=== PATIENT | female | born 1945 | race Caucasian/White ===

== ENCOUNTER 2017-01-11 02:56 | Inpatient (IN) | payer OTHER ==
[~2017-01-11] VITALS: Ht 157.5 cm; Wt 112.9 kg
[2017-01-11] MEDS ORDERED: ASPIRIN81 M4 PO (07:03)
[2017-01-11] MEDS ORDERED: AMLODIPINE BESYL5 M1 PO (07:03)
[2017-01-11] MEDS ORDERED: VYTORIN 10-401 EACH PO (07:04)
[2017-01-11] MEDS ORDERED: LISINOPRIL20 M1 PO (07:35)
[2017-01-11] MEDS ORDERED: ACTOS15 M1 PO (07:36)
[2017-01-11] MEDS ORDERED: METFORMIN HCL500 M2 PO (07:36)
[2017-01-11] MEDS ORDERED: GLUCOVANCE 5-51 EACH PO (07:36)
--- NOTE | 2017-01-11 09:52 | Operative Report ---
Operative/Inv Procedure Report Surgery Date: 01/11/17 Name of Procedure: Left carotid thromboendarterectomy Pre-Operative Diagnosis: High-grade left carotid stenosis Post-Operative Diagnosis: Same Estimated Blood Loss: scant Surgeon/Help Desk Administrator: REED MASON MD, SERGI MD, MICHAEL Anesthesia: general endotracheal tube Complications: None Condition: Stable to PACU Operative Indication: High-grade left carotid stenosis Operative/Procedure Note Note: Patient known to Dr. Reed Mason MD. Consent obtained by his services and risks benefits and alternatives discussed by the doctor with the patient. Patient brought to the operating room and laid supine on the table. Left neck prepped and draped in usual sterile surgical fashion. Longitudinal incision made over the anterior border of the sternocleidomastoid. Sharp dissection carried down through the skin and subcutaneous tissue to the carotid sheath. Artery dissected free proximally distally. The common, external/internal carotid artery were controlled. Patient was bolused with 5000 units of heparin. The artery was opened with a 11 blade and Reyes scissor. The plaque was dissected free and resected with care. The artery demonstrated excellent backbleeding. Artery was then repaired with a 6-0 running Prolene suture. The soft tissue was closed with interrupted sutures. Skin was closed with hayden. Patient tolerated the procedure well and was transferred to the recovery area.
--- NOTE | 2017-01-11 10:09 | Admission Core Measures ---
Admission Meds I reviewed the following Meds: Current Medications Sig/Nohemi Start time Last Medication Dose Stop Time Status Admin Amlodipine Besylate 5 MG DAILY 01/11 1000 AC (Norvasc) Aspirin 81 MG DAILY 01/11 1000 AC (Aspirin) Ezetimibe 10 MG DAILY 01/11 1000 AC (Zetia) Glyburide 5 MG DAILY AC 01/12 0700 UNVr (Diabeta) Lisinopril 20 MG DAILY 01/11 1000 AC (Prinivil) Ondansetron HCl 4 MG Q8P PRN 01/11 1000 UNVr (Zofran) Pioglitazone HCl 15 MG DAILY 01/11 1000 UNVr (Actos) Sodium Chloride 1,000 ML .[id number] 01/11 1000 UNVr (Normal Saline 0.9%) Acute Coronary Syndrome Inclusion Criteria ACS Diagnosis No Inpatient Core Measures LDL Reminder: If No, please order W/I first 24hr of stay Congestive Heart Failure Inclusion Criteria CHF Diagnosis No Cerebrovascular accident Inclusion Criteria CVA/TIA Diagnosis No Inpatient Core Measures Bedside Swallow Eval Reminder: If BSE failed, place ST order Antithrombotic Reminder: Order Antithrombotic Medication by end of day 2 Antithrombotic Reminder: Document Reason Antithrombotic Not ordered by end of day 2 AFIB/Flutter Reminder: If Present, add to problem list AFIB/Flutter Reminder: Order Anticoag Medication for pts with AFIB/Flutter Atherosclerosis Reminder: If Present, add to problem list LDL Reminder: If No, please order W/I first 24hr of stay PT Order Reminder: If No, please order Venous thromboembolism Inpatient Core Measures VTE Risk Factors: Age > 40, Surgery VTE Prophylaxis Ordered Inpt Mechanical (ALPS/TEDS) No [facility] VTE prophylaxis d/t No contraindications No VTE Pharm Prophylaxis d/t Surgical contraindication Inclusion Criteria - Per Current guidelines, there needs to be overlap - treatment for the first 5 days of Warfarin therapy. - Parenteral Anticoagulation (IV or SC) needs to be - given along with Warfarin therapy. VTE Diagnosis No VTE Type NONE VTE Confirmed by (Test) NONE Problem List As ranked by this Provider includes Assessment & Plan 1. S/P carotid endarterectomy HOME MEDS Home Med List Amlodipine Besylate 5 MG TABLET 1 TAB PO DAILY BP (Reported) Aspirin (Aspirin*) 81 MG TAB.CHEW 1 TAB PO DAILY HEART HEALTH (Reported) Ezetimibe/Simvastatin (Vytorin 10-40 MG Tablet) 10 MG-40 MG TABLET 1 TAB PO DAILY HEART (Reported) Glyburide/Metformin HCl (Glucovance 5-500 MG Tablet) 5 MG-500 MG TABLET 1 TAB PO BID BS (Reported) Lisinopril 20 MG TABLET 1 TAB PO DAILY bp (Reported) Metformin HCl (Metformin HCl ER) 500 MG TAB.ER.24 1 TAB PO DAILY BS (Reported ) Pioglitazone HCl (Actos) 15 MG TABLET 1 TAB PO DAILY BS (Reported)
--- NOTE | 2017-01-11 10:22 | PN- Vascular Surgery ---
Surgical Brief Attending Note Brief Attending Note: Please note an administrative assistant coordinator surgeon was needed in the case due to the patient's complexity and lack of a qualified resident to administrative assistant coordinator on the case.
[2017-01-11 12:00] VITALS: BP 166/88
--- NOTE | 2017-01-11 13:14 | PN- Vascular Surgery ---
Subjective Subjective: Post Op Note s/p left carotid endarterectomy Patient without c/o. Pain controlled, currently 02/22. Denies difficulty breathing or swallowing. Denies lightheadedness, headache, visual or hearing changes. Denies CP/SOB. Per RN her A-line SBP was reading as 184mmHg but manual SBP was 166mmHg Objective Vital Signs and I&Os Vital Signs Date Time Temp Pulse Resp B/P Pulse O2 O2 Flow FiO2 Ox Delivery Rate 01/11 1200 Nasal 3.0L Cannula 01/11 1200 97.4 86 18 166/88 99 Nasal 3.0L Cannula Intake & Output 01/11 1600 01/11 0800 01/11 0000 01/10 1600 01/10 0800 01/10 0000 Intake Total Output Total Balance Patient 249 lb Weight Physical Exam: Gen: NAD, comfortable, A&Ox3 Neuro: CNII-XII intact Neck:left neck dressing with small amount of blood spotting on inferior portion. Small amount of swelling present, soft. Chest: NRD, no stridor. RRR. Ext: No calve swelling/TTP Current Medications: Current Medications Sig/Nohemi Start time Last Medication Dose Route Stop Time Status Admin Amlodipine Besylate 5 MG DAILY 01/12 1000 DC PO Amlodipine Besylate 5 MG DAILY 01/11 1245 AC PO Amlodipine Besylate 5 MG DAILY 01/11 1000 DC PO Aspirin 81 MG DAILY 01/12 1000 AC PO Aspirin 81 MG DAILY 01/11 1000 DC PO Atorvastatin Calcium 20 MG 1700 01/11 1700 AC PO Ezetimibe 10 MG DAILY 01/12 1000 AC PO Ezetimibe 10 MG DAILY 01/11 1000 DC PO Glyburide 5 MG DAILY AC 01/12 0700 DC PO Insulin Human Regular 0 TIDAC/HS 01/11 1200 AC 01/11 SC 1258 Lisinopril 20 MG DAILY 01/12 1000 DC PO Lisinopril 20 MG DAILY 01/11 1315 UNVr PO Lisinopril 20 MG DAILY 01/11 1000 DC PO Ondansetron HCl 4 MG Q8P PRN 01/11 1115 AC IV Ondansetron HCl 4 MG Q8P PRN 01/11 1000 DC IV Pioglitazone HCl 15 MG DAILY 01/11 1000 DC PO Sodium Chloride 1,000 ML .[id number] 01/11 2320 AC IV Sodium Chloride 1,000 ML .[id number] 01/11 1000 AC 01/11 IV 01/11 2319 1156 Assessment/Plan Assessment/Plan 71yo F POD#1 s/p left carotid endarterectomy. AVSS, patient stable. Will monitor BP. New manual reading sbp 156mmHg. - pain control - insulin sliding scale - CC3 diet - home meds - start lisinopril now - OOB with assist - I/O's - neuro checks - ALPS Core Measures/Miscellaneous Venous Thromboembolism VTE Risk Factors: Age > 40, Obesity, Surgery VTE Contraindications: Active Bleeding VTE Prophylaxis Ordered Inpt: Mechanical (ALPS/TEDS) VTE Diagnosis: No VTE Type: NONE VTE Confirmed by (Test): NONE Beta Roxana Is Beta Roxana a Home Med? No Antibiotics Is Patient on Antibiotics? No
[2017-01-11 16:00] VITALS: BP 118/70
[2017-01-11 22:52] VITALS: BP 128/68
[2017-01-12] MEDS ORDERED: PERCOCET 5-3251 EACH PO (05:46)
--- NOTE | 2017-01-12 05:48 | PN- Vascular Surgery ---
Subjective Subjective: POD#1 S'/P LEFT CEA COMFORTABLE THIS AM DENIES CP, SOB, NO N+V WITH DIET AMBULATING AND TOLIETING INDEPENDENTLY Objective Vital Signs and I&Os Vital Signs Date Time Temp Pulse Resp B/P Pulse O2 O2 Flow FiO2 Ox Delivery Rate 01/12 0400 99 Nasal 2.0L Cannula 01/12 0000 98 Nasal 2.0L Cannula 01/11 2252 98.0 78 20 128/68 96 Room Air 01/11 2000 95 Room Air 01/11 1600 Nasal 1.0L Cannula 01/11 1600 98.3 72 18 118/70 98 Nasal 1.0L Cannula 01/11 1408 90 123/44 01/11 1408 90 123/44 01/11 1200 Nasal 3.0L Cannula 01/11 1200 97.4 86 18 166/88 99 Nasal 3.0L Cannula Intake & Output 01/12 0800 01/12 0000 01/11 1600 01/11 0800 01/11 0000 01/10 1600 Intake Total 895.8 455 Output Total 1000 100 Balance -104.2 355 Intake, IV 295.8 215 Intake, Oral 600 240 Number 0 0 Bowel Movements Output, Urine 1000 100 Patient 249 lb Weight Physical Exam: CV: RRR LUNGS: CLEAR ABD: SOFT, +BS EXT: WARM, DISTAL CMS INTACT Assessment/Plan Assessment/Plan VASCULAR STABLE PLAN D/C CONSUELO ADVANCE DIET D/C IV PAIN MEDS START PERCOCET PRN PLAN FOR HOME D/C LATER THIS AM Core Measures/Miscellaneous Venous Thromboembolism VTE Risk Factors: Age > 40, Obesity, Surgery VTE Contraindications: Active Bleeding VTE Prophylaxis Ordered Inpt: Mechanical (ALPS/TEDS) VTE Diagnosis: No VTE Type: NONE VTE Confirmed by (Test): NONE Beta Roxana Is Beta Roxana a Home Med? No Antibiotics Is Patient on Antibiotics? No
[2017-01-12 05:51] LABS: ABSOLUTE BASOPHIL COUNT 0 /CUMM (0.0-0.2); ABSOLUTE EOSINOPHIL COUNT 0 /CUMM (0.0-0.7); ABSOLUTE GRANULOCYTE CT 6.2 /CUMM (1.4-6.5); ABSOLUTE LYMPH COUNT 1.1 /CUMM (1.2-3.4); ABSOLUTE MONOCYTE COUNT 0.5 /CUMM (0.10-0.60); BASOPHIL % 0.4 % (0.0-2.0); EOSINOPHIL % 0.1 % (0-5); GRANULOCYTE % 78.5 % (42.2-75.2); HEMATOCRIT 37.2 % (37-47); MEAN CORPUSCULAR HGB CONC 33.2 G/DL (33.0-37.0); MEAN CORPUSCULAR VOLUME 87.3 FL (81.0-99.0); MEAN PLATELET VOLUME 11.8 FL (7.4-10.4); PLATELET COUNT 109 /CUMM (130-400); RBC DISTRIBUTION WIDTH 15.1 % (11.5-14.5); RED BLOOD CELL CT 4.26 /CUMM (4.20-5.40); WHITE BLOOD CELL COUNT 7.9 /CUMM (4.8-10.8)
--- NOTE | 2017-01-12 05:57 | Patient Discharge Instructions ---
Discharge Instructions General Discharge Information You were seen/treated for: LEFT CAROTID STENOSIS You had these procedures: LEFT CAROTID ENDARTERECTOMY Watch for these problems: INCREASED WOUND BLEEDING /DRAINAGE, INCREASED SELLING AT WOUND SITE, TEMP>101.5, BLURRED VISSION, HEADACHE, DIZINNESS Call Surgeon to remove: Caro No bath, but you may shower: Yes Other wound care: KEEP WOUND C.LIO AND DRY Diet Continue normal diet: Yes Activity Activity Limited to: Weight bear as tolerated Other activity limits: NO STRENUOUS ACTIVITY Acute Coronary Syndrome Inclusion Criteria At DC or during hospital stay patient has or had the following: ACS DIAGNOSIS No Discharge Core Measures Meds if any: Prescribed or Continued at Discharge Meds if any: NOT Prescribed or Continued at Discharge Congestive Heart Failure Inclusion Criteria At DC or during hospital stay patient has or had the following: CHF DIAGNOSIS No Discharge Core Measures Meds if any: Prescribed or Continued at Discharge Meds if any: NOT Prescribed or Continued at Discharge Cerebrovascular accident Inclusion Criteria At DC or during hospital stay patient has or had the following: CVA/TIA Diagnosis No Discharge Core Measures Meds if any: Prescribed or Continued at Discharge Antithrombotic No Statin (required if LDL =>70) Yes Anticoagulant Yes Meds if any: NOT Prescribed or Continued at Discharge Venous thromboembolism Inclusion Criteria VTE Diagnosis No VTE Type NONE VTE Confirmed by (Test) NONE Discharge Core Measures - Per Current guidelines, there needs to be overlap - treatment for the first 5 days of Warfarin therapy. - If discharged on Warfarin prior to 5 days of - overlap therapy, the patient will need to be - assessed for post discharge needs including - *Post discharge parental anticoagulation - *Warfarin and/or parental anticoagulation education - *Follow up date to check INR post discharge At least 5 days overlap therapy as Inpatient No Meds if any: Prescribed or Continued at Discharge Note: Overlap Therapy is Warfarin and Anticoagulant Meds if any: NOT Prescribed or Continued at Discharge
[2017-01-12 08:00] VITALS: BP 122/80
--- NOTE | 2017-01-12 08:16 | PN- Vascular Surgery ---
Surgical Brief Attending Note Brief Attending Note: VASCULAR ATTENDING NOTE: Pt. s/p L. CEA. No issues. Neuro: No defecits A/P D/C home F/U with [place]
[2017-01-12 09:40] VITALS: BP 138/74
--- NOTE | 2017-02-05 17:00 | Discharge Summary ---
Visit Information Visit Dates Admission Date: 01/11/17 Discharge Date: 01/12/17 Hospital Course Course Attending Physician: ALICE CORONA MD Primary Care Physician: Mary Ann RIBEIRO MD Hospital Course: Ms. Clark 71-year-old female who is taken to the operating room on 2016 for left carotid endarterectomy. She tolerated the procedure well and she was transferred to the intensive care unit for overnight monitoring. She was seen the following morning and evaluated and was determined at that time that the patient would be stable for discharge post left carotid endarterectomy. Her hospital stay was otherwise uneventful except for overnight ICU monitoring. Allergies: Coded Allergies: No Known Allergies (01/11/17) Significant Procedures: Left carotid endarterectomy Pertinent Lab Results: None Disposition Summary Disposition Principal Diagnosis: Severe left carotid stenosis Additional Diagnosis: None Discharge Disposition: home or self care Discharge Instructions General Discharge Information Code Status: Full Code Patient's Diet: Heart healthy diet Patient's Activity: No strenuous activities Follow-Up Instructions/Appts: Called Dr. Corona for temperature greater than 101, increased wound drainage or redness, headache, blurred vision or dizziness. Call Dr. Corona's office for follow-up appointment Medications at Discharge Discharge Medications: Continue taking these medications: Amlodipine Besylate (Amlodipine Besylate) 5 MG TABLET 1 Tablet ORAL DAILY Comments: NOT TAKEN Aspirin (Aspirin*) 81 MG TAB.CHEW 1 Tablet ORAL DAILY Comments: NOT TAKEN Ezetimibe/Simvastatin (Vytorin 10-40 MG Tablet) 10 MG-40 MG TABLET 1 Tablet ORAL DAILY Comments: NOT TAKEN Lisinopril (Lisinopril) 20 MG TABLET 1 Tablet ORAL DAILY Comments: NOT TAKEN Metformin HCl (Metformin HCl ER) 500 MG TAB.ER.24 1 Tablet ORAL DAILY Comments: NOT TAKEN Pioglitazone HCl (Actos) 15 MG TABLET 1 Tablet ORAL DAILY Comments: NOT TAKEN Glyburide/Metformin HCl (Glucovance 5-500 MG Tablet) 5 MG-500 MG TABLET 1 Tablet ORAL TWICE DAILY Comments: NOT TAKEN Start taking the following new medications: Oxycodone HCl/Acetaminophen (Percocet 5-325 MG Tablet) 5 MG-325 MG TABLET 1 Tablet ORAL EVERY 4-6 HOURS NEEDED as needed for PAIN SCALE 1-3 (MILD) Qty = 20 No Refills Comments: Last Taken: 01-12-17 Time: 10 AM Copies To: CJ MICHAELS,ALICE
== END 2017-01-12 10:09 | DRG 38 ==
LOC: ENRESERVDT → ENRESERVTM → SDA 02:56 → CRI 02:56
PROVIDERS: Physician Assistant Surgical; ADMIT Surgery Vascular Surgery
PROC: 03CL0ZZ Extirpation of Matter from Left Internal Carotid Artery, Open Approach (ICD-10-PCS; principal; 2017-01-11)
DX: I65.22 Occlusion and stenosis of left carotid artery (principal); Z68.42 Body mass index [BMI] 45.0-49.9, adult; E11.9 Type 2 diabetes mellitus without complications; I10 Essential (primary) hypertension; Z87.891 Personal history of nicotine dependence; E78.5 Hyperlipidemia, unspecified; Z79.84 Long term (current) use of oral hypoglycemic drugs; Z85.828 Personal history of other malignant neoplasm of skin; E66.9 Obesity, unspecified
CPT/HCPCS: CCU; 82436; 88304; J0131; J0690; J1644; J2405; J3490

== ENCOUNTER → 2018-02-28 | Day surgery (SDC) | payer OTHER ==
[~2018-02-28] VITALS: Ht 154.9 cm; Wt 95.3 kg
[~2018-02-28] MED LIST: ACTOS15 M1 PO; AMLODIPINE BES2.5 M1 PO; AMLODIPINE BESYL5 M1 PO; ASPIRIN81 M4 PO; CLARITIN10 M1 PO; CLOPIDOGREL75 M1 PO; FLONASE ALLERG9.9 ML NASB; GLUCOVANCE 5-51 EACH PO; LISINOPRIL20 M1 PO; LISINOPRIL40 M1 PO; METFORMIN HCL500 M2 PO; PERCOCET 5-3251 EACH PO; TYLENOL EXTRA500 M2 PO; VYTORIN 10-401 EACH PO
--- NOTE | 2018-02-28 14:18 | RADIOLOGY REPORT ---
EXAMINATION: CR ABDOMEN/INTRAOPERATIVE FLUOROSCOPY CLINICAL INDICATION: Left carotid angiogram and stenting. COMPARISON: None TECHNIQUE/FINDINGS: Fluoroscopic equipment was dedicated to the operating room for the performance of an intraoperative procedure. Seven cine fluoroscopy runs were acquired and are archived in PACS. Please refer to operative notes for procedural detail. FLUOROSCOPY TIME: 13 minutes 25 seconds. IMPRESSION: Administrative dictation for intraoperative fluoroscopy and image archiving in PACS. Please refer to operative notes for details.
--- NOTE | 2018-03-08 15:14 | Operative Report ---
Operative/Inv Procedure Report Surgery Date: 02/28/18 Name of Procedure: #1 ultrasound guidance #2 Left ICA, Right innominate , left subclavian angiogram Pre-Operative Diagnosis: Left ICA stenosis Post-Operative Diagnosis: same Estimated Blood Loss: none Surgeon/Dispatcher Refinery: Torres Lucio MD, Dr Anesthesia: moderate sedation Complications: none Condition: good Operative Indication: Left internal carotid stenosis by ultrasound and CAT scan. Operative/Procedure Note Note: The patient was graduates from roots of the operating room. Timeout was performed. Sedation was administered. Arterial line was placed. The right groin was sterilely prepped and draped in usual fashion. Using ultrasound, femoral artery was cannulated. Guidewire was placed into the thoracic aorta. Thoracic judgment was done first. The patient had been heparinized with 5000 units intravenous heparin.. The innominate artery was easily found and eventually thoracic and jugular done which were patent right CCA is subclavian artery. Next catheter cannulated the left subclavian artery which was widely patent. The thoracic angiogram show possibly a bovine arch. A. A catheter was placed into the takeoff of the left common carotid artery at the base of the innominate artery. It wasn't clear whether she had a high-grade stenosis versus a functional small internal carotid artery. In view of the gbovine arch the procedure was terminated. She will be brought back for common carotid artery cutdown on the left with completion angiogram with possible stenting. There were no medications. Findings: Small nonfunctional internal carotid artery possibly high-grade restenosis. Bovine Arch. Discharge Disposition: PACU
== END ==
LOC: STS 04:17
DX: I65.22 Occlusion and stenosis of left carotid artery (principal); I10 Essential (primary) hypertension; E11.9 Type 2 diabetes mellitus without complications; Z79.84 Long term (current) use of oral hypoglycemic drugs; Z87.891 Personal history of nicotine dependence; M19.90 Unspecified osteoarthritis, unspecified site; Z79.82 Long term (current) use of aspirin
CPT/HCPCS: 72040; C1725; C1760; C9399; J0131; J1644; J2250; J2720; Q9967

== ENCOUNTER 2018-03-08 03:00 | Observation (INO) | payer OTHER ==
[~2018-03-08] VITALS: Ht 154.9 cm; Wt 95.3 kg
[~2018-03-08 03:00] MED LIST changes: -TYLENOL EXTRA500 M2 PO
--- NOTE | 2018-03-08 15:04 | Operative Report ---
Operative/Inv Procedure Report Surgery Date: 03/08/18 Name of Procedure: 1.0 Carotid cutdown 2.0 Selective angiogram left ICA and intracranial Pre-Operative Diagnosis: Carotid stenosis, left side, s/p Left CEA Post-Operative Diagnosis: same Estimated Blood Loss: none Surgeon/Canoe Inspector Final: Naveed MICHAELS,Torres Hernandez Anesthesia: moderate sedation Monitors: arterial line Complications: none Condition: good Operative Indication: left carotid stenosis Operative/Procedure Note Note: The patient was correctly identified, time out performed. Sedation and a-line done. Left side of the neck prepped and draped. 10cc 1% lidocaine infiltrated. The common carotid s dissected and vessels loops place. Next throghu the skin a micropunture followed by a 6Fr sheath placed. The patient had been heparanized prior to the sheath placemnt. Next 5 angiogram done , different views . A very small ICa to the foramen founf , no stenosis. The arteriotomy repaired with 6-0 prolene. The wound was closed. The patinet tolertaed the procedure well. Findings: no stenosis, small carotid Discharge Disposition: PACU
--- NOTE | 2018-03-08 16:56 | Patient Discharge Instructions ---
Discharge Instructions General Discharge Information You were seen/treated for: Carotid stenosis, left side, s/p Left CEA You had these procedures: Surgery Date: 03/08/18 Name of Procedure: 1.0 Carotid cutdown 2.0 Selective angiogram left ICA and intracranial Watch for these problems: fever>101.3, increased pain, redness/swelling/drainage, dizziness, shortness of breath, chest pains No bath, but you may shower: Yes Other wound care: dermabond closure over incision. no dressings needed. ok to shower. Diet Continue normal diet: Yes Recommended Diet: Diabetic Activity Full Activity/No Limits: No Activity Self Limited: Yes Pounds, do NOT lift more than: 10 Other activity limits: no heavy lifting. no strenuous activity. Acute Coronary Syndrome Inclusion Criteria At DC or during hospital stay patient has or had the following: ACS DIAGNOSIS No Discharge Core Measures Meds if any: Prescribed or Continued at Discharge Meds if any: NOT Prescribed or Continued at Discharge Congestive Heart Failure Inclusion Criteria At DC or during hospital stay patient has or had the following: CHF DIAGNOSIS No Discharge Core Measures Meds if any: Prescribed or Continued at Discharge Meds if any: NOT Prescribed or Continued at Discharge Cerebrovascular accident Inclusion Criteria At DC or during hospital stay patient has or had the following: CVA/TIA Diagnosis No Discharge Core Measures Meds if any: Prescribed or Continued at Discharge Meds if any: NOT Prescribed or Continued at Discharge Venous thromboembolism Inclusion Criteria VTE Diagnosis No VTE Type NONE VTE Confirmed by (Test) NONE Discharge Core Measures - Per Current guidelines, there needs to be overlap - treatment for the first 5 days of Warfarin therapy. - If discharged on Warfarin prior to 5 days of - overlap therapy, the patient will need to be - assessed for post discharge needs including - *Post discharge parental anticoagulation - *Warfarin and/or parental anticoagulation education - *Follow up date to check INR post discharge At least 5 days overlap therapy as Inpatient No Meds if any: Prescribed or Continued at Discharge Note: Overlap Therapy is Warfarin and Anticoagulant Meds if any: NOT Prescribed or Continued at Discharge
[2018-03-08] MEDS ORDERED: TYLENOL EXTRA500 M2 PO (16:59)
[2018-03-08] MEDS ORDERED: PERCOCET 5-3251 EACH PO (16:59)
--- NOTE | 2018-03-08 17:05 | Surg Short-stay <48hrs Dis Sum ---
Visit Information Visit Dates Admission Date: 03/08/18 Discharge Date: 03/09/18 Surgical Short Stay DC Summary Admission Diagnosis: Carotid stenosis, left side, s/p Left CEA Final Diagnosis: same as above, s/p Surgery Date: 03/08/18 Name of Procedure: 1.0 Carotid cutdown 2.0 Selective angiogram left ICA and intracranial Procedure(s): Surgery Date: 03/08/18 Name of Procedure: 1.0 Carotid cutdown 2.0 Selective angiogram left ICA and intracranial Summary/Significant Findings: Electively scheduled carotid cutdown and selective angiogram left ICA by on 03/08/18 for history of left carotid stenosis, with history of left CEA. There was no role for stenting, so the patient remained in observation status overnight. Her diet was advanced as tolerated. Aspirin and plavix were resumed POD#1 morning. She was discharged home post-op day#1 after tolerating diet, pain controlled, and labs reviewed. Condition at Discharge: stable Discharge Disposition: home or self care Discharge instructions provided to patient/family: Yes Post discharge follow-up plan: one week follow up with Copies to: Prema MICHAELS,Alexey Rivera
[2018-03-08 17:45] VITALS: BP 144/68
--- NOTE | 2018-03-08 17:56 | PN- Vascular Surgery ---
Subjective Subjective: pt in bed, some left sided neck pain 6/10. denies paresthesias no CROCKETT, SOB/CP. No n/v has not ambulated Objective Vital Signs and I&Os Intake & Output 03/08 0803/08 0000 03/07 1600 03/07 0803/07 0000 Intake Total Output Total Balance Patient 210 lb Weight Physical Exam: gen- NAD resp- clear cardiac-rrr abd- soft, nt ext- strength equal bilat on upper and lower ext. 2+ radial pulse bilat neuro- distal sensory and motor function intact. CN II-XII intact Assessment/Plan Assessment/Plan 72yo F here for observation SP Left caratid angio with cutdown. stable dvt ppx- asa and plavix pain management ice to op site CC diet regular home meds DC planning- likely home tomorrow Core Measures Venous Thromboembolism VTE Risk Factors Surgery No Mechanical VTE Prophylaxis d/t N/A MechProphylax Ordered No VTE Pharm Prophylaxis d/t NA PharmProphylax ordered
[2018-03-08 20:00] VITALS: BP 120/66
--- NOTE | 2018-03-08 20:56 | RADIOLOGY REPORT ---
EXAMINATION: CR ABDOMEN/INTRAOPERATIVE FLUOROSCOPY CLINICAL INDICATION: Left carotid arteriogram in OR. COMPARISON: 02/28/2018. TECHNIQUE/FINDINGS: Fluoroscopic equipment was dedicated to the operating room for the performance of an intraoperative procedure. Several (3) spot films and 6 cine fluoroscopy runs were acquired and are archived in PACS. Please refer to operative notes for procedural detail. FLUOROSCOPY TIME: 2 minutes 40 seconds. IMPRESSION: Administrative dictation for intraoperative fluoroscopy and image archiving in PACS. Please refer to operative notes for details.
[2018-03-09 00:28] VITALS: BP 108/60
[2018-03-09 04:26] VITALS: BP 122/60
--- NOTE | 2018-03-09 07:33 | PN- Vascular Surgery ---
Subjective Subjective: No complaints. Tolerating diet. No nausea. Out of bed to bathroom. No dizziness. No shortness of breath. No chest pains. Voiding well. Objective Vital Signs and I&Os Vital Signs Date Time Temp Pulse Resp B/P B/P Pulse O2 O2 Flow FiO2 Mean Ox Delivery Rate 03/09 0426 98.1 60 20 122/60 95 03/09 0028 98.2 70 20 108/60 94 03/086 66 120/66 03/08 2000 97.9 68 18 120/66 94 Room Air 03/08 1745 98.0 75 16 144/68 97 Room Air Room Air Intake & Output 03/09 0803/09 0000 03/08 1600 03/08 0800 03/08 0000 03/07 1600 Intake Total 1080 670 Output Total 500 450 Balance 580 220 Intake, IV 600 170 Intake, Oral 480 500 Number 0 Bowel Movements Output, Urine 500 450 Patient 210 lb 210 lb Weight Physical Exam: General - alert & oriented x 3. comfortable. no acute distress. no facial droop. Neck - incision well approximated with skin glue. no hematoma. no exudates. no drains. Lungs - clear bilaterally. no w/r/r. Cardiac - s1s2. +systolic murmur appreciated Abdomen - soft. nontender. Extremities - warm bilaterally. no c/c/e. calves soft and nontender b/l. athrombics active. Current Medications: Current Medications Sig/Nohemi Start time Last Medication Dose Route Stop Time Status Admin Acetaminophen 650 MG Q6P PRN 03/08 1800 AC PO Amlodipine Besylate 5 MG DAILY 03/09 900 AC PO Amlodipine Besylate 2.5 MG QPM 03/08 2100 AC 03/08 PO 2055 Aspirin Buffered 81 MG DAILY 03/09 900 AC PO Atorvastatin Calcium 20 MG 1700 03/08 1900 AC 03/08 PO 2001 Clopidogrel Bisulfate 75 MG DAILY 03/09 900 AC PO Dextrose/Sodium 1,000 ML Q13H 03/08 1800 AC 03/09 Chloride IV 0630 Docusate Sodium 100 MG BID 03/08 2100 AC 03/08 PO 2056 Ezetimibe 10 MG DAILY 03/09 900 AC PO Fentanyl Citrate 300 MCG .STK-MED ONE 03/08 1329 DC IM 03/08 1330 Fluticasone 2 SPRAY DAILY 03/09 900 AC Propionate LEONARDO Glyburide 5 MG DAILY AC 03/09 0700 AC 03/09 PO 0629 Insulin Aspart 0 TIDAC 03/08 1700 AC SC Lisinopril 40 MG DAILY 03/09 0900 AC PO Loratadine 10 MG DAILY 03/09 0900 AC PO Metformin HCl 500 MG 1700 03/09 1700 AC PO Midazolam HCl 4 MG .STK-MED ONE 03/08 1329 DC IM 03/08 1330 Morphine Sulfate 4 MG .STK-MED ONE 03/08 1707 DC IM 03/08 1708 Morphine Sulfate 4 MG .STK-MED ONE 03/08 1553 DC IM 03/08 1554 Morphine Sulfate 4 MG .STK-MED ONE 03/08 1538 DC IM 03/08 1539 Ondansetron HCl 4 MG Q6P PRN 03/08 1800 AC IV Oxycodone/ 1 TAB Q4P PRN 03/08 1800 AC Acetaminophen PO Oxycodone/ 2 TAB Q4P PRN 03/08 1800 AC 03/09 Acetaminophen PO 0141 Pioglitazone HCl 15 MG DAILY 03/09 0900 AC PO Assessment/Plan Assessment/Plan This 72 year old female is POD#0 s/p left caratid angio with cutdown, doing well tolerating diet. d/c iv fluids percocet prn pain control ok to resume asa and plavix today oob/ambulation home meds ordered f/u am labs (small dye load in the OR for angio yesterday) observation status overnight with plans for discharge today will d/w Core Measures Venous Thromboembolism VTE Risk Factors Surgery No Mechanical VTE Prophylaxis d/t N/A MechProphylax Ordered No VTE Pharm Prophylaxis d/t NA PharmProphylax ordered
[2018-03-09 08:03] VITALS: BP 124/74
[2018-03-09 08:52] LABS: ABSOLUTE BASOPHIL COUNT 0 /CUMM (0.0-0.2); ABSOLUTE EOSINOPHIL COUNT 0.2 /CUMM (0.0-0.7); ABSOLUTE GRANULOCYTE CT 3.2 /CUMM (1.4-6.5); ABSOLUTE LYMPH COUNT 1.6 /CUMM (1.2-3.4); ABSOLUTE MONOCYTE COUNT 0.5 /CUMM (0.10-0.60); BASOPHIL % 0.4 % (0.0-2.0); EOSINOPHIL % 4.3 % (0-5); GRANULOCYTE % 57.5 % (42.2-75.2); HEMATOCRIT 34.4 % (37-47); MEAN CORPUSCULAR HGB 29.8 PG (27.0-31.0); MEAN CORPUSCULAR HGB CONC 33.7 G/DL (33.0-37.0); MEAN CORPUSCULAR VOLUME 88.4 FL (81.0-99.0); MEAN PLATELET VOLUME 10.3 FL (7.4-10.4); PLATELET COUNT 134 /CUMM (130-400); RBC DISTRIBUTION WIDTH 14.5 % (11.5-14.5); RED BLOOD CELL CT 3.89 /CUMM (4.20-5.40); WHITE BLOOD CELL COUNT 5.5 /CUMM (4.8-10.8)
[2018-03-09 09:03] VITALS: BP 124/74
== END 2018-03-09 12:15 ==
LOC: STS 03:00 → PACUH 15:47 → CANRESERV 16:09 → ENRESERV 16:09 → EDBEDREQ 16:17 → ENRESERV 16:37 → ENTRNSPT 17:02 → 2NB 17:18 → CMPTRNSPT 17:32 → ENPENDDIS 03-09 08:15 → ENTRNSPT 03-09 11:53 → 2NB 03-09 12:15 → CMPTRNSPT 03-09 12:20
PROVIDERS: Physician Assistant
DX: I65.22 Occlusion and stenosis of left carotid artery (principal); I10 Essential (primary) hypertension; Z79.82 Long term (current) use of aspirin; E11.9 Type 2 diabetes mellitus without complications; Z79.4 Long term (current) use of insulin; Z79.84 Long term (current) use of oral hypoglycemic drugs; Z79.01 Long term (current) use of anticoagulants; E78.00 Pure hypercholesterolemia, unspecified; I35.0 Nonrheumatic aortic (valve) stenosis
CPT/HCPCS: 6040; 36415; 70360; 82436; 96374; G0378; J1644; J2405; J7042; Q9967